=== PATIENT | female | born 1960 | race Two or more races ===

== ENCOUNTER 2018-02-01 17:40 | Emergency (ER) | payer MEDICAID ==
[~2018-02-01] VITALS: Ht 162.6 cm; Wt 85.9 kg
[~2018-02-01 17:40] MED LIST: ECO81 PO; ESGIC1 TAB PO; LEVOTHYROXINE0.05 M2; LEVOTHYROXINE0.05 M2 PO; LIPI10 PO; NAPROSYN500 MG PO; SIMVASTATIN40 M1 PO; ZOCOR10 MG; ZOL100 PO
[2018-02-01 17:44] VITALS: Ht 162.6 cm; Wt 85.9 kg
[2018-02-01 18:59] LABS: UA SPECIFIC GRAVITY 1.025 (1.005-1.035); microscopic required? YES; urine erythrocyte NEGATIVE (NEGATIVE)
[2018-02-01 19:12] LABS: BASOPHIL % 0.9 % (0-2); PLATELET COUNT 230 x10^3mcL (130-400); RED CELL DISTRIBUTION WIDTH 14.2 % (11.5-14.5)
[2018-02-01 19:21] LABS: CALCIUM 8.4 mg/dL (8.5-10.1); CARBON DIOXIDE 30.8 mmol/L (21-32); CHLORIDE SERUM 106 mmol/L (98-107); CREATININE SERUM 0.7 mg/dL (0.6-1.0); GFR1 > 60 mL/min; GLUCOSE SERUM 97 mg/dL (74-106); POTASSIUM SERUM 4.2 mmol/L (3.5-5.1); SODIUM SERUM 142 mmol/L (136-145)
[2018-02-01 19:35] LABS: ALKALINE PHOSPHATASE 75 U/L (46-116); ALT/SGPT 38 U/L (14-59); AST/SGOT 28 U/L (15-37); BILIRUBIN TOTAL 0.22 mg/dL (0.20-1.00); FREE T4 0.85 ng/dL (0.76-1.46); LIPASE 126 IU/L (73-393); TOTAL PROTEIN, SERUM 6.5 g/dL (6.4-8.2)
[2018-02-01 19:36] LABS: ALBUMIN 3.1 g/dL (3.4-5.0)
[2018-02-01 21:29] VITALS: BP 127/80
== END 2018-02-01 21:29 | disposition home or self-care (01) ==
LOC: ED 17:40
PROVIDERS: Emergency Medicine
DX: N39.0 Urinary tract infection, site not specified (principal); E78.00 Pure hypercholesterolemia, unspecified; E03.9 Hypothyroidism, unspecified
CPT/HCPCS: 84439; J2270; J7030

== ENCOUNTER 2018-02-22 20:42 | Emergency (ER) | payer OTHER, MEDICAID ==
[2018-02-22 22:11] LABS: CALCIUM 8.6 mg/dL (8.5-10.1); CARBON DIOXIDE 26.4 mmol/L (21-32); CHLORIDE SERUM 107 mmol/L (98-107); CREATININE SERUM 0.8 mg/dL (0.6-1.0); GFR1 > 60 mL/min; GLUCOSE SERUM 128 mg/dL (74-106); POTASSIUM SERUM 3.6 mmol/L (3.5-5.1); SODIUM SERUM 146 mmol/L (136-145)
[2018-02-22 22:16] LABS: ALBUMIN 3.6 g/dL (3.4-5.0); ALKALINE PHOSPHATASE 79 U/L (46-116); ALT/SGPT 45 U/L (14-59); AST/SGOT 34 U/L (15-37); BILIRUBIN TOTAL 0.11 mg/dL (0.20-1.00); TOTAL PROTEIN, SERUM 7.5 g/dL (6.4-8.2)
[2018-02-22 23:17] LABS: microscopic required? NO
[2018-02-22 23:26] LABS: UA SPECIFIC GRAVITY 1.015 (1.005-1.035); urine erythrocyte NEGATIVE (NEGATIVE)
[2018-02-22 23:39] LABS: AMPHETAMINE QUAL UR NONE DETECTED (See below)
[2018-02-22 23:55] LABS: BASOPHIL % 0.5 % (0-2); PLATELET COUNT 291 x10^3mcL (130-400); RED CELL DISTRIBUTION WIDTH 14.4 % (11.5-14.5)
[2018-02-23 03:20] VITALS: BP 97/73
== END 2018-02-23 03:20 | disposition home or self-care (01) ==
LOC: ED 20:42
PROVIDERS: Emergency Medicine
DX: T50.901A Poisoning by unspecified drugs, medicaments and biological substances, accidental (unintentional), initial encounter (principal); F41.1 Generalized anxiety disorder; E03.9 Hypothyroidism, unspecified; Y92.89 Other specified places as the place of occurrence of the external cause
CPT/HCPCS: G0480; J2310; J7030